=== PATIENT | female | born 1995 | race African-American/Black ===

== ENCOUNTER 2017-10-05 18:27 | Emergency (ER) | payer BC, OTHER, SELFPAY ==
[2017-10-05 19:15] LABS: Bilirubin Negative (Negative); Blood, Urine Negative (Negative); Clarity Slightly Cloudy (Clear); Glucose, Urine (Dipstick) Negative (Negative); Leukocyte Trace (Negative); Nitrite Negative (Negative); Protein, Urine (Dipstick) Negative (Neg-Trace); pH, Urine 6.5 (5.0-9.0)
[2017-10-05 19:18] LABS: Pregnancy Test - Urine (BHCG) Negative (Negative); Pregu Control Background? CLEAR/WHITE (CLR/WHITE); Pregu Control Bar Appear? YES (CONTROL BAR)
[2017-10-05 19:22] LABS: Bacteria/HPF 1+ HPF (None Seen); Hyaline Casts/LPF 0-3 HYALINE CAST LPF (0-3 Hyaline); RBC/HPF 0-3 HPF (0-3)
[2017-10-05] MEDS ORDERED: Ketorolac Tromethamine 60 MG/2 ML VIAL ONE (19:28)
== END 2017-10-05 19:54 | disposition home or self-care (01) ==
LOC: SCSER 18:27
DX: M54.5 Low back pain (principal); G47.00 Insomnia, unspecified
CPT/HCPCS: 81003; 81015; 81025; 96372; J1885

== ENCOUNTER 2017-10-31 10:56 | Emergency (ER) | payer SELFPAY ==
[2017-10-31] MEDS ORDERED: Ondansetron HCl/PF 4 MG/2 ML Vial ONE (11:18)
[2017-10-31] MEDS ORDERED: Promethazine HCl 25 MG/ML VIAL ONE (11:31)
== END 2017-10-31 13:36 | disposition home or self-care (01) ==
LOC: SCSER 10:56
DX: T62.8X1A Toxic effect of other specified noxious substances eaten as food, accidental (unintentional), initial encounter (principal); R11.2 Nausea with vomiting, unspecified; G47.00 Insomnia, unspecified
CPT/HCPCS: 96361; 96374; 96375; J2405; J2550

== ENCOUNTER 2018-04-17 10:49 | Outpatient (CLI) | payer MEDICAID ==
--- NOTE | 2018-04-17 12:41 | ULT ---
LIMITED RIGHT BREAST ULTRASOUND LIMITED LEFT BREAST ULTRASOUND: PROVIDED CLINICAL HISTORY: Bilateral palpable abnormalities. FINDINGS: Comparison is made with the ultrasound of the right breast dated 12/20/2014 and ultrasound of the left breast dated 11/16/2014. On the right, there is a stable oval hypoechoic mass having a sonographic appearance typical for fibr oadenoma at the 12 o'clock position of the right breast, unchanged in size measuring about 1.8 cm. A t the 12 o'clock position of the right breast is a circumscribed, oval, wide open, tall hypoechoic ma ss with smooth margins and no posterior shadowing measuring about 1 cm, also demonstrating findings t ypical for fibroadenoma. On the left, there is a 3 cm oval circumscribed hypoechoic mass at the 9 o'clock position which appea rs decreased in size with respect to the prior examination. An adjacent smaller lesion measuring abo ut 1.5 cm is seen. Retroareolar nodule at the 6 o'clock position appears stable as well. IMPRESSION: Multiple bilateral fibroadenomas. POS: OFF
== END 2018-04-17 10:50 | disposition home or self-care (01) ==
LOC: BICULT 10:49
PROVIDERS: ATTEND Nurse Practitioner Women's Health
DX: Z01.419 Encounter for gynecological examination (general) (routine) without abnormal findings (principal); D24.2 Benign neoplasm of left breast; D24.1 Benign neoplasm of right breast

== ENCOUNTER 2018-07-26 01:09 | Emergency (ER) | payer MEDICAID, SELFPAY ==
[2018-07-26] MEDS ORDERED: Ketorolac Tromethamine 30 MG/ML VIAL ONE (03:28)
== END 2018-07-26 03:36 | disposition home or self-care (01) ==
LOC: ERS 01:09
DX: K08.89 Other specified disorders of teeth and supporting structures (principal); G47.00 Insomnia, unspecified; G51.0 Bell's palsy
CPT/HCPCS: 96372; J1885

== ENCOUNTER 2019-05-17 09:13 | Emergency (ER) | payer BC, SELFPAY ==
[2019-05-17] MEDS ORDERED: Ibuprofen 200 MG TAB ONE (11:15)
== END 2019-05-17 12:37 | disposition home or self-care (01) ==
LOC: ERS 09:13
DX: J06.9 Acute upper respiratory infection, unspecified (principal); J02.8 Acute pharyngitis due to other specified organisms; G47.00 Insomnia, unspecified; G43.909 Migraine, unspecified, not intractable, without status migrainosus
CPT/HCPCS: 87081; 87430; 99283

== ENCOUNTER 2024-03-02 12:07 | Emergency (ER) | payer BC, SELFPAY ==
[2024-03-02 12:32] LABS: #Basophils 0.03 10x3/uL (0.0-0.2); %Basophils 0.5 % (0.0-1.0); %Eosinophils 0.9 % (0.0-10.0); %Monocytes 5.7 % (0.0-10.0); %Neutrophils 54.6 % (42.0-75.0); Hematocrit 36.6 % (36.0-47.0); Hemoglobin 12.1 g/dL (12.0-16.0); Mean Corpuscular HGB CONC 33.1 g/dL (32.0-36.0); Mean Corpuscular Hemoglobin 27.9 pg (27.0-31.0); Mean Corpuscular Volume 84.5 fL (78.0-98.0); Mean Platelet Volume 10.9 fL (7.4-10.4); Platelet Count 244 10x3/uL (130-400); RBC Distribution Width 12.6 % (11.5-14.5); Red Blood Cell (RBC) Count 4.33 mill/uL (4.20-5.40)
[2024-03-02 12:54] LABS: ALT (SGPT) 13 U/L (8-55); AST (SGOT) 19 U/L (5-34); Albumin 4.2 g/dL (3.5-5.0); Alkaline Phosphatase 68 U/L (40-110); Anion Gap 12 mmol/L (10-20); BUN (Urea Nitrogen) 10 mg/dL (7.0-18.7); Bilirubin, Total 0.7 mg/dL (0.2-1.2); Calc. Creatinine Clearance 0 mL/min (70-130); Calcium 9.4 mg/dL (7.8-10.44); Carbon Dioxide 24 mmol/L (22-29); Chloride 108 mmol/L (98-107); Estimated GFR 89; Globulin 3.5 g/dL (2.4-3.5); Glucose 91 mg/dL (70-105); Lipase 25 U/L (8-78); Potassium 3.9 mmol/L (3.5-5.1); Protein, Total 7.7 g/dL (6.0-8.3); Sodium 140 mmol/L (136-145)
[2024-03-02] MEDS ORDERED: Ondansetron ODT 4 MG TAB ONE (13:15)
[2024-03-02] MEDS ORDERED: Famotidine 20 MG TAB ONE (13:15)
[2024-03-02 13:55] LABS: Bilirubin Negative (Negative); Blood, Urine 3+ (Negative); Clarity Clear (Clear); Glucose, Urine (Dipstick) Normal (Negative); Ketone, Urine Negative (Negative); Leukocyte 25 Leu/uL (Negative); Nitrite Negative (Negative); Protein, Urine (Dipstick) Negative (Neg-Trace); RBC/HPF Greater than 50 HPF (0-3); Specific Gravity, Urine 1.016 (1.002-1.036); Urobilinogen 3 mg/dL (Less than 2)
[2024-03-02 13:56] LABS: Bacteria/HPF None Seen HPF (None Seen); CAUTI Indications for Culture Acute Hematuria; Squamous Epithelial 0-3 HPF (0-3)
[2024-03-02 13:57] LABS: Urine Culture Reflex No No
[2024-03-02 13:59] LABS: Pregnancy Test - Urine (BHCG) Negative (Negative); Pregu Control Background? CLEAR/WHITE (CLR/WHITE); Pregu Control Bar Appear? YES (CONTROL BAR); Specific Gravity 1.016 (1.002-1.036)
== END 2024-03-02 14:34 | disposition home or self-care (01) ==
LOC: ERS 12:07
DX: J20.9 Acute bronchitis, unspecified (principal); R11.2 Nausea with vomiting, unspecified; F17.290 Nicotine dependence, other tobacco product, uncomplicated
CPT/HCPCS: 36415; 80053; 81001; 81025; 83690; 85025; 99284; Q0162